=== PATIENT | male | born 1940 | race Caucasian/White ===

== ENCOUNTER 2019-06-12 11:20 | Outpatient (CLI) | payer OTHER | END 2019-06-12 23:59 | disposition home or self-care (01) | LOC: RAD 11:20 | PROVIDERS: ATTEND Nurse Practitioner Family | DX: Z02.9 Encounter for administrative examinations, unspecified (principal) ==

== ENCOUNTER → 2020-01-26 | Outpatient (CLI) | payer OTHER ==
[~2020-01-26] MED LIST: aspirin PO; finasteride PO; glipizide PO; metformin PO; metoprolol PO; tamsulosin PO; trazodone PO
== END | disposition home or self-care (01) ==
LOC: STAR 09:22
PROVIDERS: ATTEND Student in an Organized Health Care Education/Training Program
DX: Z01.812 Encounter for preprocedural laboratory examination (principal); N28.89 Other specified disorders of kidney and ureter; I44.4 Left anterior fascicular block; Z20.828 Contact with and (suspected) exposure to other viral communicable diseases
CPT/HCPCS: 36415; 71046; 87635; 93005

== ENCOUNTER → 2020-03-18 | Outpatient (CLI) | payer OTHER ==
[~2020-03-18] MED LIST changes: +OMNIPAQUE 350 MG/ML, 100ML BOTTLE ONE
== END | disposition home or self-care (01) ==
LOC: CFH 14:23
PROVIDERS: ATTEND Student in an Organized Health Care Education/Training Program
DX: N20.0 Calculus of kidney (principal); K55.1 Chronic vascular disorders of intestine; M51.35 Other intervertebral disc degeneration, thoracolumbar region; N28.89 Other specified disorders of kidney and ureter
CPT/HCPCS: 74170; 82565; Q9967

== ENCOUNTER 2020-03-27 05:56 | Emergency (ER) | payer OTHER ==
[~2020-03-27] VITALS: Ht 182.9 cm; Wt 96.3 kg
[~2020-03-27 05:56] MED LIST changes: +DOCU-131 PO; +HYDR-3240 PO; -OMNIPAQUE 350 MG/ML, 100ML BOTTLE ONE; +ONDA4TAB7 PO
--- NOTE | 2020-03-27 06:33 | NUR ---
PT EXISTING FORD NOT DRAINING, FORD REMOVED. NEW PLACED VIA STERILE TECHNIQUE.
--- NOTE | 2020-03-27 06:47 | NUR ---
REPORT TO EMMA DIGGS
[2020-03-27] MEDS ORDERED: FOSFOMYCIN 3 GM PACKET ONE (06:55)
[2020-03-27] MEDS ORDERED: FOSFOMYCIN 3 GM PACKET PO ONE (07:00)
[2020-03-27 07:10] LABS: MICROSCOPIC INDICATED
[2020-03-27 07:39] VITALS: BP 149/78
--- NOTE | 2020-03-27 07:45 | NUR ---
BAG SWITHCED TO LEG BAG AND SECURED FOR PT. TOTAL OF 700ML OUTPUT SINCE PLACED. PT RESP EVEN AND UNLABORED, JULIETTE.
--- NOTE | 2020-03-27 07:55 | NUR ---
Patient given discharge instructions and they have confirmed that they understand the instructions. Patient ambulatory with steady gait.
[2020-03-27] MEDS ORDERED: lipitor (20:27)
[2020-03-28] MEDS ORDERED: CEFD300C37 PO (12:36)
== END 2020-03-27 07:58 | disposition home or self-care (01) ==
LOC: ED 07:35
DX: R33.9 Retention of urine, unspecified (principal); T83.098D Other mechanical complication of other urinary catheter, subsequent encounter; F17.210 Nicotine dependence, cigarettes, uncomplicated
CPT/HCPCS: 51702; 81001; 87077; 87086; 87186; 93005; 99284; 99406

== ENCOUNTER 2020-03-27 17:15 | Observation (INO) | payer OTHER ==
[~2020-03-27] VITALS: Ht 182.9 cm; Wt 95.4 kg
--- NOTE | 2020-03-27 18:28 | NUR ---
PT STATES HE HAD URINARY CATH PLACED THIS MORNING AND VERY LITTLE URINE IS COMING OUT. PT C/O BLADDER PAIN AND THE URGE TO URINATE.
[2020-03-27 18:35] LABS: BASOPHILS % (AUTO) 0 % (0-1); EOSINOPHILS % (AUTO) 1 % (1-7); LYMPHOCYTES % (AUTO) 7 % (22-44); MEAN CORPUSCULAR HEMOGLOBIN 31.1 pg (27.5-34.5); MEAN PLATELET VOLUME 7.6 fL (7.4-10.4); MONOCYTES % (AUTO) 8 % (2-9); NEUTROPHILS % (AUTO) 83 % (42-75); PLATELET COUNT 278 x10^3/uL (130-400); RED CELL DISTRIBUTION WIDTH 13.7 % (9.4-14.8)
[2020-03-27 18:43] LABS: ANION GAP 4 mmol/L (5-15); CALCIUM 8.4 mg/dL (8.5-10.1); CHLORIDE 108 mmol/L (98-107)
[2020-03-27 18:48] LABS: ALANINE AMINOTRANSFERASE 16 U/L (12-78); ALKALINE PHOSPHATASE 109 U/L (45-117); CREATININE 0.95 mg/dL (0.7-1.3); TOTAL PROTEIN 6.7 g/dL (6.4-8.2)
[2020-03-27 19:15] LABS: MD SCAN
[2020-03-27] MEDS ORDERED: CEFDINIR 300 MG CAPSULE PO/NG ONE (19:30)
[2020-03-27] MEDS ORDERED: CEFTRIAXONE 1,000 MG IM ONE (19:30)
[2020-03-27] MEDS ORDERED: SODIUM CHLORIDE FLUSH 10ML SYR IVF ONE (19:30)
[2020-03-27] MEDS ORDERED: CEFTRIAXONE PMX 1GM/50ML 50 ML IVPB ONE (19:30)
[2020-03-27] MEDS ORDERED: CEFTRIAXONE PMX 1GM/50ML 50 ML ONE (19:50)
[2020-03-27 19:52] LABS: MICROSCOPIC INDICATED
--- NOTE | 2020-03-27 20:12 | NUR ---
Tee catheter draining. PIV started. ATB started. Pt tolerated well. Dinner provided to pt per admitted MD. Admitting at bedside.
[2020-03-27] MEDS ORDERED: lipitor (20:27)
[2020-03-27] MEDS ORDERED: DOCUSATE 100 MG CAPSULE PO PRN (20:30)
[2020-03-27] MEDS ORDERED: HYDROcodone/APAP 5/325 TABLET PO PRN (20:30)
[2020-03-27] MEDS: HEPARIN 5,000 UNITS/ML, 1ML SQ SCH ×2 (20:30→23:31)
[2020-03-27] MEDS ORDERED: morphine SULFATE 10 MG/ML, 1ML IVPush PRN (20:30)
[2020-03-27] MEDS ORDERED: ACETAMINOPHEN 325 MG TABLET PO PRN (20:30)
[2020-03-27] MEDS ORDERED: LACTATED RINGERS 1,000 ML IV SCH (20:30)
[2020-03-27] MEDS ORDERED: ONDANSETRON 2MG/ML, 2ML IVPush PRN (20:30)
[2020-03-27] MEDS ORDERED: TEMAZEPAM 15 MG CAPSULE PO PRN (20:30)
[2020-03-27] MEDS ORDERED: ENALAPRILAT 1.25 MG/ML, 2ML IVPush PRN (20:30)
[2020-03-27] MEDS ORDERED: GUAIFENESIN/DM 200-20MG, 10ML UDC PO PRN (20:30)
[2020-03-27] MEDS ORDERED: METHOCARBAMOL 500 MG TABLET PO PRN (20:30)
--- NOTE | 2020-03-27 21:46 | NUR ---
REPORT GIVEN TO EMMA MONGE
--- NOTE | 2020-03-27 21:48 | NUR ---
PT REPORTS LAST FRIAY HE HAD A PARTIAL LEFT NEPHECTOMY
[2020-03-27 22:40] VITALS: BP 151/66
[2020-03-27] MEDS: INSULIN REGULAR 100 UNITS/ML, 3ML VIAL SQ-INSULIN SCH (22:58)
[2020-03-27] MEDS: FAMOTIDINE 20 MG TABLET PO SCH (23:51)
[2020-03-28 03:50] VITALS: BP 148/63
[2020-03-28 06:05] LABS: BASOPHILS % (AUTO) 0 % (0-1); EOSINOPHILS % (AUTO) 3 % (1-7); LYMPHOCYTES % (AUTO) 14 % (22-44); MEAN CORPUSCULAR HEMOGLOBIN 31.7 pg (27.5-34.5); MEAN CORPUSCULAR HGB CONC 33.8 g/dL (33.2-36.2); MEAN PLATELET VOLUME 7.8 fL (7.4-10.4); MONOCYTES % (AUTO) 8 % (2-9); NEUTROPHILS % (AUTO) 75 % (42-75); PLATELET COUNT 247 x10^3/uL (130-400); RED BLOOD COUNT 3.53 x10^6/uL (4.38-5.82); RED CELL DISTRIBUTION WIDTH 13.3 % (9.4-14.8)
[2020-03-28 06:11] LABS: CHLORIDE 108 mmol/L (98-107)
[2020-03-28 06:12] LABS: ANION GAP 5 mmol/L (5-15); CALCIUM 8.2 mg/dL (8.5-10.1)
[2020-03-28 06:13] LABS: CREATININE 0.87 mg/dL (0.7-1.3)
[2020-03-28 06:27] LABS: MD NO
[2020-03-28] MEDS: INSULIN REGULAR 100 UNITS/ML, 3ML VIAL SQ-INSULIN SCH ×2 (06:34→10:50)
[2020-03-28 08:00] VITALS: BP 146/67
[2020-03-28] MEDS ORDERED: POTASSIUM CHLORIDE 20 MEQ TAB.ER.PRT PO ONE (08:00)
[2020-03-28] MEDS: FAMOTIDINE 20 MG TABLET PO SCH (08:04)
[2020-03-28] MEDS: HEPARIN 5,000 UNITS/ML, 1ML SQ SCH (12:04)
[2020-03-28] MEDS ORDERED: CEFD300C37 PO (12:36)
[2020-03-28] MEDS ORDERED: CEFTRIAXONE PMX 1GM/50ML 50 ML IV SCH (19:30)
== END 2020-03-28 14:23 | disposition home or self-care (01) ==
LOC: ED 20:12 → EDIP 20:19 → 2N 22:43 → DCLOUNGE 03-28 14:09
PROVIDERS: ADMIT Internal Medicine; ATTEND Hospitalist
DX: T83.098A Other mechanical complication of other urinary catheter, initial encounter (principal); N39.0 Urinary tract infection, site not specified; B96.89 Other specified bacterial agents as the cause of diseases classified elsewhere; C64.9 Malignant neoplasm of unspecified kidney, except renal pelvis; I10 Essential (primary) hypertension; E78.5 Hyperlipidemia, unspecified; N40.0 Benign prostatic hyperplasia without lower urinary tract symptoms; E11.65 Type 2 diabetes mellitus with hyperglycemia; D72.829 Elevated white blood cell count, unspecified; D64.9 Anemia, unspecified; E87.6 Hypokalemia; E87.8 Other disorders of electrolyte and fluid balance, not elsewhere classified; R33.8 Other retention of urine; E88.09 Other disorders of plasma-protein metabolism, not elsewhere classified; F17.200 Nicotine dependence, unspecified, uncomplicated; Y73.8 Miscellaneous gastroenterology and urology devices associated with adverse incidents, not elsewhere classified; Z79.84 Long term (current) use of oral hypoglycemic drugs; Z79.899 Other long term (current) drug therapy; Z90.5 Acquired absence of kidney; Z79.82 Long term (current) use of aspirin; Z85.528 Personal history of other malignant neoplasm of kidney; Z96.649 Presence of unspecified artificial hip joint
CPT/HCPCS: 36415; 80048; 80053; 81001; 82962; 83605; 83735; 84100; 85025; 87040; 87086; 96361; 96365; 96372; 99284; G0378; J0696; J1644; J7120

== ENCOUNTER 2020-04-02 07:14 | Emergency (ER) | payer OTHER ==
[~2020-04-02] VITALS: Ht 182.9 cm; Wt 85.5 kg
[~2020-04-02 07:14] MED LIST changes: +CEFD300C37 PO; +lipitor
[2020-04-02] MEDS ORDERED: CEFTRIAXONE 1,000 MG IM ONE (08:00)
--- NOTE | 2020-04-02 08:00 | NUR ---
IRRIGATED PT CATH WITH 150ML NS, OUTPUT DOCUMENTED. PT TOLERATED PROCEDURE WELL. PT STATES "I ALREADY FEEL BETTER, SUCH A RELIEF". NEW LEG BAG AND SECUREMENT DEVICE APPLIED. ERP AWARE OF OUTCOME. PT DENIES ANY NEEDS AT THIS TIME. CALL LIGHT AND PERSONAL BELONGINGS WITHIN REACH. WILL CONTINUE TO MONITOR.
[2020-04-02 08:24] LABS: MICROSCOPIC INDICATED
[2020-04-02 08:31] LABS: ALANINE AMINOTRANSFERASE 11 U/L (12-78); ANION GAP 5 mmol/L (5-15); CALCIUM 8.7 mg/dL (8.5-10.1); CHLORIDE 110 mmol/L (98-107); CREATININE 0.93 mg/dL (0.7-1.3)
[2020-04-02 08:33] LABS: ALKALINE PHOSPHATASE 112 U/L (45-117); BILIRUBIN,TOTAL 0.6 mg/dL (0.2-1.0); TOTAL PROTEIN 6.7 g/dL (6.4-8.2)
[2020-04-02 08:40] LABS: BASOPHILS % (AUTO) 0 % (0-1); EOSINOPHILS % (AUTO) 1 % (1-7); LYMPHOCYTES % (AUTO) 11 % (22-44); MEAN CORPUSCULAR HEMOGLOBIN 31.7 pg (27.5-34.5); MEAN CORPUSCULAR HGB CONC 33.6 g/dL (33.2-36.2); MEAN PLATELET VOLUME 7.2 fL (7.4-10.4); MONOCYTES % (AUTO) 6 % (2-9); NEUTROPHILS % (AUTO) 82 % (42-75); PLATELET COUNT 385 x10^3/uL (130-400); RED BLOOD COUNT 3.93 x10^6/uL (4.38-5.82); RED CELL DISTRIBUTION WIDTH 13.5 % (9.4-14.8)
[2020-04-02 08:44] LABS: MD NO
[2020-04-02 08:56] VITALS: BP 169/77
--- NOTE | 2020-04-02 08:57 | NUR ---
PT SITTING UPRIGHT ON GURNEY. PT STATES "MY PAIN IS ALL GONE, I FEEL SO MUCH BETTER". PT STATES "I NEED A CAB VOUCHER TO GET TO MY DOCTOR APPOINTMENT!" PT DENIES ANY NEEDS AT THIS. CALL LIGHT IN REACH.
[2020-04-02] MEDS ORDERED: CEFTRIAXONE 1,000 MG ONE (08:59)
--- NOTE | 2020-04-02 09:15 | NUR ---
PT STANDING UP IN ROOM AND STATES "I THREW UP IN THE SINK. I THINK I GOT UP TO FAST, IM STILL HAVING SOME NAUSEA", NOTIFIED AND PT MEDICATED PER EMAR.
[2020-04-02] MEDS ORDERED: ONDANSETRON ODT 4 MG ONE (09:23)
[2020-04-02] MEDS ORDERED: ONDANSETRON ODT 4 MG PO ONE (09:30)
--- NOTE | 2020-04-02 09:36 | NUR ---
Patient given discharge instructions and they have confirmed that they understand the instructions. Patient ambulatory with steady gait to d/c desk awaiting taxi. Pt given taxi voucher to urology doctors appointment.
== END 2020-04-02 09:39 | disposition home or self-care (01) ==
LOC: ED 09:28
DX: N39.0 Urinary tract infection, site not specified (principal)
CPT/HCPCS: 36415; 51702; 80053; 81001; 85025; 87086; 96372; 99284; J0696; Q0162